=== PATIENT | male | born 1995 | race Caucasian/White ===

== ENCOUNTER 2017-10-18 23:02 | Emergency (ER) | payer MEDICAID ==
[~2017-10-18] VITALS: Ht 167.6 cm; Wt 63.6 kg
[2017-10-18 23:18] VITALS: BP 134/104
== END 2017-10-19 01:00 | disposition home or self-care (01) ==
LOC: EMS 10-19 00:54
DX: S62.324A Displaced fracture of shaft of fourth metacarpal bone, right hand, initial encounter for closed fracture (principal); S62.326A Displaced fracture of shaft of fifth metacarpal bone, right hand, initial encounter for closed fracture; J45.909 Unspecified asthma, uncomplicated; W22.01XA Walked into wall, initial encounter; Y93.89 Activity, other specified; Y92.89 Other specified places as the place of occurrence of the external cause; Y99.8 Other external cause status
CPT/HCPCS: 99284

== ENCOUNTER 2017-11-11 12:52 | Emergency (ER) | payer MEDICAID ==
[~2017-11-11] VITALS: Ht 170.2 cm; Wt 68.2 kg
[2017-11-11 16:02] VITALS: BP 128/78
== END 2017-11-11 16:51 | disposition home or self-care (01) ==
LOC: EMS 12:54
DX: M21.941 Unspecified acquired deformity of hand, right hand (principal); J45.909 Unspecified asthma, uncomplicated
CPT/HCPCS: 99281

== ENCOUNTER 2017-11-12 15:47 | Emergency (ER) | payer MEDICAID ==
[~2017-11-12] VITALS: Ht 167.6 cm; Wt 68.0 kg
[2017-11-12 17:31] VITALS: BP 126/73
== END 2017-11-12 18:21 | disposition home or self-care (01) ==
LOC: EMS 15:48
DX: M21.941 Unspecified acquired deformity of hand, right hand (principal); J45.909 Unspecified asthma, uncomplicated
CPT/HCPCS: 99281